=== PATIENT | male | born 1970 | race Caucasian/White ===

== ENCOUNTER 2020-02-09 17:49 | Emergency (ER) | payer OTHER, BC ==
[~2020-02-09] VITALS: Ht 175.3 cm; Wt 105.0 kg
[2020-02-09] MEDS ORDERED: IV NORMAL SALINE 1000ML BAG 1,000 ML IV SCH (18:16)
[2020-02-09] MEDS ORDERED: fentaNYL PF VIAL 100 MCG/2 ML VIAL ONE (18:22)
[2020-02-09] MEDS: fentaNYL PF VIAL 100 MCG/2 ML VIAL IV PRN ×3 (18:24→20:20)
[2020-02-09 18:27] LABS: BASO # 0.1 x10^3/uL (0.0-0.2); BASO % 1 % (0-3); EOS # 0.2 x10^3/uL (0.0-0.7); EOS % 2 % (0-3); HEMATOCRIT 51.1 % (39.0-53.0); HEMOGLOBIN 18.2 g/dL (13.0-17.5); LYMPH # 2.7 x10^3/uL (1.0-4.8); LYMPH % 25 % (24-48); MEAN CORPUSCULAR HEMOGLOBIN 33 pg (25-35); MEAN CORPUSCULAR HGB CONC 36 g/dL (31-37); MEAN CORPUSCULAR VOLUME 94 fL (79-100); MONO # 0.7 x10^3/uL (0.0-1.1); MONO % 6 % (0-9); NEUT # 7.4 x10^3/uL (1.8-7.7); NEUT % 67 % (31-73); PLATELET COUNT 166 x10^3/uL (140-400); RED BLOOD COUNT 5.46 x10^6/uL (4.30-5.70); RED CELL DISTRIBUTION WIDTH 15.4 % (11.5-14.5); WHITE BLOOD COUNT 11.1 x10^3/uL (4.0-11.0)
[2020-02-09 18:34] LABS: CALCIUM 9.4 mg/dL (8.5-10.1); CREATININE 1.4 mg/dL (0.7-1.3); GFR 54.3; POTASSIUM 4.1 mmol/L (3.5-5.1)
--- NOTE | 2020-02-09 18:34 | PHYS DOC ---
General Adult EDM: Chief Complaint: HEAT EXPOSURE HPI: HPI: Patient is a 49 year old male who presents with complaint of severe muscle cramps all over after working out in the heat with asphalt for the last 2 days. Patient states that he has not urinated at all today. He states that yesterday his urine was orange. He states that he has been drinking a lot of water, stating that he drank approximately 3 gallons today. He states that he still feeling very thirsty. He denies any chest pain or shortness of breath. He rates the pain at an 8 out of 10 and states that it is all over his body, worse in his abdominal wall and in his legs. He states that it feels like he has charley horses all over. [] Review of Systems: Review of Systems: Constitutional: Denies fever or chills. [] Respiratory: Denies cough or shortness of breath. [] Cardiovascular: Denies chest pain or edema. [] GI: Complains of abdominal wall cramps without vomiting or diarrhea. [] Musculoskeletal: Complains of diffuse body pain. [] Integument: Denies rash. [] Neurologic: Denies headache, focal weakness or sensory changes. [] A full 10 point review of systems has been reviewed and is otherwise negative. Heart Score: Risk Factors: Risk Factors: DM, Current or recent (<one month) smoker, HTN, HLP, family history of CAD, obesity. Risk Scores: Score 0 - 3: 2.5% MACE over next 6 weeks - Discharge Home Score 4 - 6: 20.3% MACE over next 6 weeks - Admit for Clinical Observation Score 7 - 10: 72.7% MACE over next 6 weeks - Early Invasive Strategies Current Medications: Current Medications Medications (Trade) Dose Ordered Sig/Xavier Start Time Stop Time Status Last Admin Dose Admin Fentanyl Citrate (Fentanyl 2ml Vial) 100 mcg STK-MED ONCE 02/09/20 18:22 02/09/20 18:22 DC Sodium Chloride 1,000 ml @ 1,000 mls/hr Q1H 02/09/20 18:16 02/09/20 19:15 02/09/20 18:24 1,000 MLS/HR Allergies: Allergies: Allergies Coded Allergies Type Severity Reaction Last Updated Verified No Known Drug Allergies 02/09/20 No Physical Exam: PE: Constitutional: Well developed, well nourished, in mild distress. [] HENT: Normocephalic, atraumatic, bilateral external ears normal, oropharynx moist, no oral exudates, nose normal. [] Eyes: PERRLA, EOMI, conjunctiva normal, no discharge. [] Neck: Normal range of motion, no tenderness, supple, no stridor. [] Cardiovascular: Regular rate and rhythm [] Lungs & Thorax: Bilateral breath sounds clear to auscultation [] Abdomen: Bowel sounds normal, soft, with diffuse abdominal wall tenderness. [] Skin: Warm, dry, no erythema, no rash. [] Extremities: Diffusely tender, no cyanosis, no clubbing, ROM intact, no edema. [] Neurologic: Alert and oriented X 3, no focal deficits noted. [] EKG: EKG: EKG demonstrates normal sinus rhythm with rate of 86. [] Radiology/Procedures: Radiology/Procedures: [] Course & Med Decision Making: Course & Med Decision Making Pertinent Labs and Imaging studies reviewed. (See chart for details) [] Dragon Disclaimer: Dragon Disclaimer: This electronic medical record was generated, in whole or in part, using a voice recognition dictation system. Departure Departure Impression: Primary Impression: Heat cramps Qualified Codes: T67.2XXA - Heat cramp, initial encounter Additional Impression: Dehydration Disposition: 01 HOME, SELF-CARE Condition: STABLE Patient Instructions: Dehydration, Adult, Heat Disorders Scripts Tramadol Hcl (TRAMADOL HCL) 50 Mg Tablet 50 MG PO Q6HRS PRN for PAIN, #12 TAB Prov: SHELLY HOLDEN Jr. DO 02/09/20 Orphenadrine Citrate (ORPHENADRINE CITRATE) 100 Mg Tablet.er 1 TAB PO BID PRN for MUSCLE PAIN, #14 TAB Prov: SHELLY HOLDEN Jr. DO 02/09/20 SHELLY HOLDEN Jr. DO Feb 09, 2020 18:34
[2020-02-09 18:40] LABS: ALBUMIN 4.4 g/dL (3.4-5.0); ALBUMIN/GLOBULIN RATIO 1.2 (1.0-1.7); TOTAL BILIRUBIN 1.5 mg/dL (0.2-1.0)
[2020-02-09] MEDS ORDERED: IOHEXOL 300 MG/ML 100ML VIAL. IV ONE (19:00)
[2020-02-09] MEDS ORDERED: CONTRAST GIVEN. MC PRN (19:15)
[2020-02-09] MEDS ORDERED: PROPOFOL 100 ML IV PRN ×2 (19:15→19:30)
--- NOTE | 2020-02-09 19:35 | RAD ---
Exam: CT of abdomen and pelvis with contrast INDICATION: Upper abdominal pain TECHNIQUE: Sequential axial images through the abdomen and pelvis obtained following the administration of 60 mL of Omni 300 IV contrast. Sagittal and coronal reformatted images were reconstructed from the axial data and reviewed. Comparisons: None FINDINGS: Heart size is normal. No pericardial effusion. Visualized lung bases are clear. No pleural effusion. Diffuse hepatic steatosis are noted. Spleen, pancreas, gallbladder and adrenals are unremarkable. Kidneys demonstrate symmetric enhancement. No perinephric inflammation or hydronephrosis. No renal or ureteral calculi are identified. Bladder is distended and appears thin-walled. Prostate is not enlarged. Large and small bowel are unremarkable. Appendix is normal. No free intra-abdominal air or fluid. No obstruction. Abdominal aorta has normal course and caliber. Abdominal vasculature is patent. No enlarged abdominal lymph nodes are identified. No suspicious osseous lesions or acute fractures. IMPRESSION: 1. Diffuse hepatic steatosis. 2. No acute process identified within the abdomen or pelvis. Exposure: One or more of the following in the visualized dose reduction techniques were utilized for this examination: 1. Automated exposure control 2. Adjustment of the MA and/or KV according to patient size 3. Use of iterative of reconstructive technique Electronically signed by: Natalie Jara MD (02/09/2020 7:32 PM) [id number]
[2020-02-09 19:41] LABS: BILIRUBIN,URINE SMALL (NEG); CLARITY,URINE CLEAR; COLOR,URINE AMBER; NITRITE,URINE NEGATIVE (NEG); PH,URINE 5.5 (<5.0-8.0); PROTEIN,URINE NEGATIVE (NEG-TRACE)
[2020-02-09 19:48] LABS: HYALINE CASTS, URINE MODERATE /HPF
[2020-02-09 19:49] LABS: BACTERIA,URINE 0 /HPF (0-FEW); RBC,URINE OCC /HPF (0-2)
[2020-02-09] MEDS ORDERED: IV NORMAL SALINE 1000ML BAG 1,000 ML IV ONE (20:15)
[2020-02-09 20:51] VITALS: BP 139/66
[2020-02-09] MEDS ORDERED: ORPH100T PO (20:51)
[2020-02-09] MEDS ORDERED: TRAM50TA PO (20:51)
--- NOTE | 2020-02-10 06:09 | EKG ---
[facility] [address] [place] [address] Test Date: 2020-02-09 Test Time: 18:29:09 Pat Name: EBONY LOMBARDI Department: Room: Gender: M [employer] Consultant: : [id number] Requested By: SHELLY HOLDEN Order Number: [id number] Reading MD: Measurements Intervals [place] Rate: 86 P: 49 WA: 122 QRS: -10 QRSD: 126 T: 24 QT: 368 QTc: 443 Interpretive Statements SINUS RHYTHM LEFTWARD AXIS RIGHT BUNDLE BRANCH BLOCK QRS(T) CONTOUR ABNORMALITY CONSIDER ANTEROLATERAL MYOCARDIAL DAMAGE CONSIDER INFERIOR INFARCT ABNORMAL ECG RI6.01 No previous ECG available for comparison
== END 2020-02-09 21:05 | disposition home or self-care (01) ==
LOC: ER 17:49
DX: T67.2XXA Heat cramp, initial encounter (principal); E86.0 Dehydration; X58.XXXA Exposure to other specified factors, initial encounter; Y93.89 Activity, other specified; Y92.89 Other specified places as the place of occurrence of the external cause; Y99.8 Other external cause status
CPT/HCPCS: 36415; 74177; 80053; 81001; 82550; 83735; 85025; 87086; 93005; 96361; 96374; 96376; 99285; J3010; J7030; Q9967